=== PATIENT | male | born 1975 | race African-American/Black ===

== ENCOUNTER 2018-08-14 03:33 | Emergency (ER) | payer SELFPAY ==
[~2018-08-14] VITALS: Ht 167.6 cm; Wt 65.8 kg
[2018-08-14 03:38] VITALS: BP 124/78
== END 2018-08-14 05:59 | disposition home or self-care (01) ==
LOC: ER 03:33
DX: S43.401A Unspecified sprain of right shoulder joint, initial encounter (principal); X50.0XXA Overexertion from strenuous movement or load, initial encounter; Y93.89 Activity, other specified; Y99.8 Other external cause status; Y92.89 Other specified places as the place of occurrence of the external cause
CPT/HCPCS: 72070; 73030

== ENCOUNTER 2019-07-05 22:49 | Emergency (ER) | payer SELFPAY ==
[~2019-07-05] VITALS: Ht 167.6 cm; Wt 65.3 kg
[2019-07-05 23:19] LABS: Urine Bacteria NONE SEEN /hpf (None Seen); Urine Blood Negative /uL (Negative); Urine Mucus FEW (None Seen); Urine Specific Gravity 1.021 (1.001-1.035); Urine WBC 1 /hpf (0 - 3)
[2019-07-06] MEDS ORDERED: cefTRIAXone SOD 1,000 MG VL IM ONE (01:15)
[2019-07-06] MEDS ORDERED: AZITHROMYCIN 250 MG TAB PO ONE (01:15)
[2019-07-06 01:54] VITALS: BP 116/78
== END 2019-07-06 01:58 | disposition home or self-care (01) ==
LOC: ER 22:50
DX: Z20.2 Contact with and (suspected) exposure to infections with a predominantly sexual mode of transmission (principal)
CPT/HCPCS: 81001; 96372; 99283; J0696